=== PATIENT | male | born 1965 | race Caucasian/White ===

== ENCOUNTER 2016-12-18 13:16 | Emergency (ER) | payer OTHER ==
[~2016-12-18] VITALS: Ht 175.3 cm; Wt 84.6 kg
[2016-12-18 13:18] VITALS: BP 134/86; PULSE 88; RESP 22; TEMP 98.2; O2SAT 99
--- NOTE | 2016-12-18 13:39 | PD ---
HPI Chief Complaint: Anxiety Time Seen by Provider: 13:25 Travel History International Travel<30 days: No Contact w/Intl Traveler<30days: No Traveled to known affect area: No History of Present Illness HPI The patient is a 51-year-old male who presents to the emergency department for anxiety. The patient states that he is been having marital difficulties with his for the last several months, they have been involved in several verbal altercations. The patient states that they were involved in a verbal argument yesterday and then he developed palpitations, racing thoughts, "cloudy head ", and feelings of anxiety. He also complains of intermittent shortness of breath and sharp chest pains of the left side that occasionally squeezing and feels like a "muscle is expanding ". The patient states his symptoms are intermittent , can last several seconds to several minutes, and are worse after verbal arguments. 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 He denies any history of medical problems including PE , DVT, acute coronary syndrome, diabetes, or illicit drug use. He does smoke and has been smoking more recently, he is up to 2 packs per day. He denies any history of pulmonary embolism, DVT, or recent lower extremity swelling. Symptoms are moderate, exacerbated after a verbal argument with his , and there are no current alleviating factors. [facility] Past Medical History Medical History: Denies Significant Hx Diminished Hearing: No Past Surgical History Surgical History: No Previous Surgery Social History Alcohol Use: No Tobacco Use: Yes (1PPD) Substance Use: No Allergies-Medications (Allergen,Severity, Reaction): Coded Allergies: No Known Allergies (Unverified , 12/18/16) Reported Meds & Prescriptions Reported Meds & Active Scripts Active No Active Prescriptions or Reported Medications Review of Systems Except as stated in HPI: all other systems reviewed are Neg HENT: No: Lightheadedness Cardiovascular: Positive: Chest Pain or Discomfort Respiratory: Positive: Shortness of Breath Gastrointestinal: No: Nausea, Vomiting, Abdominal Pain Neurologic: Positive: Other (short term memory difficulty and a "cloudy head ") , No: Change in Mentation Psychiatric: Positive: Anxiety, No: Suicidal Ideations, Substance Abuse Physical Exam Narrative GENERAL: Awake, alert, pleasant 51-year-old male who appears his stated age and is in no acute respiratory distress. SKIN: Focused skin assessment warm/dry. HEAD: Atraumatic. Normocephalic. EYES: Pupils equal and round. No scleral icterus. No injection or drainage. ENT: No nasal bleeding or discharge. Breath smells of cigarettes. NECK: Trachea midline. No JVD. CARDIOVASCULAR: Regular rate and rhythm. No murmur appreciated. Heart rate in the 80s. RESPIRATORY: No accessory muscle use. Clear to auscultation. Breath sounds equal bilaterally. GASTROINTESTINAL: Abdomen soft, non-tender, nondistended. No rebound tenderness. MUSCULOSKELETAL: No obvious deformities. No clubbing. No cyanosis. No edema. NEUROLOGICAL: Awake and alert. No obvious cranial nerve deficits. Motor grossly within normal limits. Normal speech. Nonfocal. PSYCHIATRIC: Slightly anxious, insight and judgment appear normal. Data Data Last Documented VS Vital Signs Date Time Temp Pulse Resp B/P Pulse Ox O2 Delivery O2 Flow Rate FiO2 12/18/16 13:42 95 12/18/16 13:18 98.2 88 22 134/86 Orders Complete Blood Count With Diff (12/18/16 13:32) Comprehensive Metabolic Panel (12/18/16 13:32) Magnesium (Mg) (12/18/16 13:32) Ckmb (Isoenzyme) Profile (12/18/16 13:32) Troponin I (12/18/16 13:32) Iv Access Insert/Monitor (12/18/16 13:32) Electrocardiogram (12/18/16 13:32) Ecg Monitoring (12/18/16 13:32) Oximetry (12/18/16 13:32) Oxygen Administration (12/18/16 13:32) Sodium Chloride 0.9% Flush (Ns Flush) (12/18/16 13:45) Thyroid Stimulating Hormone (12/18/16 13:32) Sodium Chlor 0.9% 1000 Ml Inj (Ns 1000 M (12/18/16 13:45) Lorazepam (Ativan) (12/18/16 13:45) CKMB (12/18/16 13:39) CKMB% (12/18/16 13:39) Labs Laboratory Tests Test 12/18/16 13:39 White Blood Count 8.7 TH/MM3 Red Blood Count 5.20 MIL/MM3 Hemoglobin 15.3 GM/DL Hematocrit 44.7 % Mean Corpuscular Volume 86.1 FL Mean Corpuscular Hemoglobin 29.4 PG Mean Corpuscular Hemoglobin 34.2 % Concent Red Cell Distribution Width 12.7 % Platelet Count 209 TH/MM3 Mean Platelet Volume 9.0 FL Neutrophils (%) (Auto) 63.2 % Lymphocytes (%) (Auto) 29.7 % Monocytes (%) (Auto) 4.8 % Eosinophils (%) (Auto) 2.0 % Basophils (%) (Auto) 0.3 % Neutrophils # (Auto) 5.5 TH/MM3 Lymphocytes # (Auto) 2.6 TH/MM3 Monocytes # (Auto) 0.4 TH/MM3 Eosinophils # (Auto) 0.2 TH/MM3 Basophils # (Auto) 0.0 TH/MM3 CBC Comment DIFF FINAL Differential Comment Sodium Level 140 MEQ/L Potassium Level 4.4 MEQ/L Chloride Level 107 MEQ/L Carbon Dioxide Level 24.0 MEQ/L Anion Gap 9 MEQ/L Blood Urea Nitrogen 17 MG/DL Creatinine 1.20 MG/DL Estimat Glomerular Filtration 63 ML/MIN Rate Random Glucose 135 MG/DL Calcium Level 9.5 MG/DL Magnesium Level 2.0 MG/DL Total Bilirubin 0.8 MG/DL Aspartate Amino Transf 27 U/L (AST/SGOT) Alanine Aminotransferase 33 U/L (ALT/SGPT) Alkaline Phosphatase 68 U/L Total Creatine Kinase 275 U/L Creatine Kinase MB 9.1 NG/ML Troponin I LESS THAN 0.02 NG/ML Total Protein 8.1 GM/DL Albumin 4.1 GM/DL Thyroid Stimulating Hormone 1.360 uIU/ML [address] [place] [address] Medical Decision Making Medical Screen Exam Complete: Yes Emergency Medical Condition: Yes Medical Record Reviewed: Yes Interpretation(s) EKG reveals normal sinus rhythm with a rate of 76. No ischemic changes or ectopy noted. Laboratory Tests Test 12/18/16 13:39 White Blood Count 8.7 TH/MM3 Red Blood Count 5.20 MIL/MM3 Hemoglobin 15.3 GM/DL Hematocrit 44.7 % Mean Corpuscular Volume 86.1 FL Mean Corpuscular Hemoglobin 29.4 PG Mean Corpuscular Hemoglobin 34.2 % Concent Red Cell Distribution Width 12.7 % Platelet Count 209 TH/MM3 Mean Platelet Volume 9.0 FL Neutrophils (%) (Auto) 63.2 % Lymphocytes (%) (Auto) 29.7 % Monocytes (%) (Auto) 4.8 % Eosinophils (%) (Auto) 2.0 % Basophils (%) (Auto) 0.3 % Neutrophils # (Auto) 5.5 TH/MM3 Lymphocytes # (Auto) 2.6 TH/MM3 Monocytes # (Auto) 0.4 TH/MM3 Eosinophils # (Auto) 0.2 TH/MM3 Basophils # (Auto) 0.0 TH/MM3 CBC Comment DIFF FINAL Differential Comment Sodium Level 140 MEQ/L Potassium Level 4.4 MEQ/L Chloride Level 107 MEQ/L Carbon Dioxide Level 24.0 MEQ/L Anion Gap 9 MEQ/L Blood Urea Nitrogen 17 MG/DL Creatinine 1.20 MG/DL Estimat Glomerular Filtration 63 ML/MIN Rate Random Glucose 135 MG/DL Calcium Level 9.5 MG/DL Magnesium Level 2.0 MG/DL Total Bilirubin 0.8 MG/DL Aspartate Amino Transf 27 U/L (AST/SGOT) Alanine Aminotransferase 33 U/L (ALT/SGPT) Alkaline Phosphatase 68 U/L Total Creatine Kinase 275 U/L Creatine Kinase MB 9.1 NG/ML Troponin I LESS THAN 0.02 NG/ML Total Protein 8.1 GM/DL Albumin 4.1 GM/DL Thyroid Stimulating Hormone 1.360 uIU/ML 3rd Gen Differential Diagnosis Differential diagnoses includes stress reaction, adjustment reaction, anxiety, hyperthyroidism, pulmonary embolism. Narrative Course IV was established, labs are drawn and sent, and the patient was placed on cardiac telemetry monitoring and continuous pulse oximetry monitoring. EKG was ordered and interpreted. The patient was administered normal saline 500 cc intravenously and Ativan 1 mg orally. The patient's EKG is unremarkable, there are no ischemic changes noted. The patient's TSH is normal. Cardiac enzymes are unremarkable. The patient's heart rate came down into the 60s, there is no hypoxia, I doubt pulmonary embolism. The patient was reevaluated at 2:27 PM, his symptoms had significantly improved. This may be a stress reaction versus anxiety. He will be prescribed some Ativan as needed, is advised not to take if needed, do not take the Ativan in the go to work, drink alcohol, or drive a car. He is advised to follow-up with a [facility] physician and may benefit from outpatient therapy if symptoms persist. Patient agrees and understands. He is stable for outpatient follow-up. He will be provided a copy of his laboratory evaluation at discharge. Diagnosis Primary Impression: Anxiety Additional Impression: Stress reaction Patient Instructions: General Instructions Additional Instructions: Follow-up with a primary physician on an outpatient basis, he may benefit from therapy. Ativan as directed. Please provide the patient a copy of his labs at discharge. No driving, drinking alcohol, or working on Ativan. Med/Other Pt SpecificInfo: Prescription(s) given Scripts Lorazepam (Ativan)1 Mg Tab1 Mg PO Q6H PRN (ANXIETY AND/OR AGITATION) #10 TAB Ref 0 Prov:Tera Valentine MD 12/18/16 Disposition: 01 DISCHARGE HOME Condition: Stable Tera Valentine MD Dec 18, 2016 13:39
[2016-12-18 13:42] VITALS: O2SAT 95
[2016-12-18] MEDS ORDERED: LORazepam 1 MG TAB PO ONE (13:45)
[2016-12-18] MEDS ORDERED: SODIUM CHLOR 0.9% 1000 ML INJ 1,000 ML IV ONE (13:45)
[2016-12-18] MEDS ORDERED: SODIUM CHLORIDE 0.9% FLUSH 10 ML FLUSH IVF PRN (13:45)
[2016-12-18 14:01] LABS: CHLORIDE 107 MEQ/L (98-107); POTASSIUM 4.4 MEQ/L (3.5-5.1); SODIUM (NA) 140 MEQ/L (136-145)
[2016-12-18 14:06] LABS: ANION GAP 9 MEQ/L (5-15); BLOOD UREA NITROGEN 17 MG/DL (7-18)
[2016-12-18 14:09] LABS: ALT (GPT) 33 U/L (12-78); AST (GOT) 27 U/L (15-37); GLOMERULAR FILTRATION RATE 63 ML/MIN (>89)
[2016-12-18 14:10] LABS: TOTAL BILIRUBIN ADULT 0.8 MG/DL (0.2-1.0)
[2016-12-18 14:12] LABS: ALKALINE PHOSPHATASE 68 U/L (45-117); CREATINE KINASE 275 U/L (39-308)
[2016-12-18 14:22] LABS: AUTOMATED NEUTROPHIL # 5.5 TH/MM3 (1.8-7.7); BASOPHIL % 0.3 % (0.0-2.0); EOSINOPHIL # 0.2 TH/MM3 (0-0.4); HEMATOCRIT 44.7 % (39.0-51.0); HEMO FLAGS DIFF FINAL; LYMPH % 29.7 % (9.0-44.0); LYMPHOCYTE # 2.6 TH/MM3 (1.0-4.8); MEAN CELL VOLUME 86.1 FL (80.0-100.0); MEAN CORPUSCULAR HEMOGLOBIN 29.4 PG (27.0-34.0); MEAN CORPUSCULAR HGB CONC 34.2 % (32.0-36.0); MONO % 4.8 % (0.0-8.0); NEUT % 63.2 % (16.0-70.0); PLATELET COUNT 209 TH/MM3 (150-450); RED CELL DISTRIBUTION WIDTH 12.7 % (11.6-17.2); WHITE BLOOD COUNT 8.7 TH/MM3 (4.0-11.0)
[2016-12-18 14:24] LABS: CKMB 9.1 NG/ML (0.5-3.6)
[2016-12-18] MEDS ORDERED: LORA-474 PO (14:31)
--- NOTE | 2016-12-20 07:05 | EKG ---
Date Performed: 12/18/2016 Time Performed: 13:42:24 PTAGE: 51 years EKG: Sinus rhythm NORMAL ECG NO PREVIOUS TRACING DOCTOR: Bakari De La Cruz Interpretating Date/Time 12/20/2016 07:03:52
== END 2016-12-18 14:53 | disposition home or self-care (01) ==
LOC: PHED 13:16
DX: F41.9 Anxiety disorder, unspecified (principal); F43.9 Reaction to severe stress, unspecified; F17.210 Nicotine dependence, cigarettes, uncomplicated; R07.9 Chest pain, unspecified
CPT/HCPCS: 80053; 82550; 82552; 83735; 84443; 84484; 85025; 93005; 96360; 99284; J7030